=== PATIENT | male | born 1985 ===

== ENCOUNTER 2018-07-13 14:17 | Emergency (ER) | payer SELFPAY ==
[2018-07-13 14:29] VITALS: BMI 29.8
[2018-07-13 14:43] VITALS: O2SAT 99
[2018-07-13 15:03] LABS: BASO % 0.4 % (0.0-2.0); EOS # 0.1 K/uL (0.0-0.7); EOS % 1.7 % (0.0-4.0); HEMOGLOBIN 14.3 g/dL (12.0-18.0); LYMPH # 1.6 K/uL (1.0-4.3); LYMPH % 31.4 % (20.0-40.0); MEAN CELL VOLUME 91.2 fL (80.0-94.0); MEAN CORPUSCULAR HEMOGLOBIN 30.9 pg (27.0-31.0); MEAN CORPUSCULAR HGB CONC 33.8 g/dL (33.0-37.0); MEAN PLATELET VOLUME 8.5 fL (7.2-11.7); MONO # 0.4 K/uL (0.0-0.8); MONO % 7.2 % (0.0-10.0); NEUT % 59.3 % (50.0-75.0); RBC 4.62 Mil/uL (4.40-5.90); RED CELL DISTRIBUTION WIDTH 12.8 % (11.5-14.5)
[2018-07-13 15:45] LABS: ALB/GLOB RATIO 1.8 (1.0-2.1); ALBUMIN 4.8 g/dL (3.5-5.0); ALT/SGPT 26 U/L (21-72); AST/SGOT 41 U/L (17-59); BLOOD UREA NITROGEN 11 mg/dL (9-20); CALCIUM 8.9 mg/dl (8.6-10.4); GFR NON-AFRICAN AMERICAN > 60
[2018-07-13 15:47] LABS: ACETAMINOPHEN < 10.0 ug/mL (10.0-30.0); SALICYLATE < 1.0 mg/dL 1
--- NOTE | 2018-07-13 15:50 | C.PDOC ---
History Of Present Illness 33 years old male is brought in by EMS for complaints of taking a dietary supplement then he became non-verbal. As per EMS, patient was asking random questions without any association to the conversations taking place. Upon arrival, patient is non-responding verbally but he is awake and alert with no physical deficits. No PMhx of seizure like activity prior. Time Seen by Provider: 07/13/18 14:35 Chief Complaint (Nursing): Altered Mental Status History Per: Patient, EMS History/Exam Limitations: None, Clinical Condition Onset/Duration Of Symptoms: Hrs Current Symptoms Are (Timing): Still Present Usual Baseline: Alert Oriented, Alert Confused, Non-verbal Exacerbating Factor(s): Unknown Use Of Anticoag/Antiplatelets: No Recent travel outside of the [place]: No Past Medical History Vital Signs: Last Vital Signs Temp 98.5 F 07/13/18 14:35 Pulse 79 07/13/18 14:35 Resp 16 07/13/18 14:35 BP 140/96 H 07/13/18 14:35 Pulse Ox 99 07/13/18 14:35 Family History: States: Unknown Family Hx - Social History Hx Alcohol Use: No (unable to obtain) Hx Substance Use: No (unable to obtain) Review Of Systems Review Of Systems: ROS cannot be obtained secondary to pt's inabilty to answer questions. (Patient is non-verbal) Physical Exam - Physical Exam Appears: Non-toxic, No Acute Distress Skin: Normal Color, Warm, Dry, No Rash Head: Atraumatic, Normacephalic Eye(s): bilateral: Normal Inspection, PERRL, EOMI Oral Mucosa: Moist Neck: Normal ROM, Supple Chest: Symmetrical, No Tenderness Cardiovascular: Rhythm Regular, No Murmur Respiratory: Normal Breath Sounds, No Rales, No Rhonchi, No Wheezing Gastrointestinal/Abdominal: Bowel Sounds (Active ), Soft, No Tenderness Extremity: Normal ROM Extremity: Bilateral: Atraumatic, Normal Color And Temperature, Normal ROM Pulses: Left Radial: Normal, Right Radial: Normal Neurological/Psych: Other (Awake and alert. No focal deficits ) ED Course And Treatment - Laboratory Results Result Diagrams: 07/13/18 14:58 07/13/18 14:58 O2 Sat by Pulse Oximetry: 99 (RA ) Pulse Ox Interpretation: Normal Medical Decision Making Medical Decision Making: Plan: * Blood work * EKG * Urinalysis * CT Head EKG: * Normal sinus rhythm at 79 bpm * No intervals, axis, or ST/T wave changes. 15:30: Patient at baseline and Conversant. Has no complaints at this time. No deficits. Patient also states he feels normal, denies any drug ingestion. Patient is ambulatory without any limitations. No focal deficits. Progress: Will cancel CT head and CXR. Labs all normal. Diagnosis: Confusion resolved Disposition Counseled Patient/Family Regarding: Studies Performed, Diagnosis, Need For Followup - Disposition Referrals: [facility] [Outside] Disposition: HOME/ ROUTINE Disposition Time: 15:49 Condition: STABLE Additional Instructions: follow up with your doctor within 2 days call ot make an appointment take medications as prescribed return to ER if symptoms worsens or progress Instructions: Conversion Disorder, Delirium (Confusion) (DC) Forms: [facility] ([place]er), General Discharge Instructions - Clinical Impression Clinical Impression: Conversion disorder, Confusion - Scribe Statement The provider has reviewed the documentation as recorded by the Shanika Glass All medical record entries made by the Danielleibsánchez were at my direction and personally dictated by me. I have reviewed the chart and agree that the record accurately reflects my personal performance of the history, physical exam, medical decision making, and the department course for this patient. I have also personally directed, reviewed, and agree with the discharge instructions and disposition.
--- NOTE | 2018-07-13 15:51 | C.PDOC ---
Time Seen by Provider: 07/13/18 14:35 Chief Complaint (Nursing): Altered Mental Status Past Medical History Vital Signs: Last Vital Signs Temp 98.5 F 07/13/18 14:35 Pulse 79 07/13/18 14:35 Resp 16 07/13/18 14:35 BP 140/96 H 07/13/18 14:35 Pulse Ox 99 07/13/18 14:35 - Social History Hx Alcohol Use: No (unable to obtain) Hx Substance Use: No (unable to obtain) ED Course And Treatment - Laboratory Results Result Diagrams: 07/13/18 14:58 07/13/18 14:58 O2 Sat by Pulse Oximetry: 99 Disposition - Disposition Forms: [employer] ([place])
[2018-07-13 16:15] VITALS: BP 131/89; PULSE 86; RESP 18; TEMP 98.4
--- NOTE | 2018-07-14 18:41 | CARD ---
APPROVED REPORT Date of service: 07/13/2018 EKG Measurement Heart [id number] <Conclusion> Normal sinus rhythm Nonspecific ST abnormality Abnormal ECG
== END 2018-07-13 16:17 | disposition home or self-care (01) ==
LOC: C.ER 14:17 → EDBD 14:17 → C.ER 16:17
DX: F44.9 Dissociative and conversion disorder, unspecified (principal); R41.0 Disorientation, unspecified
CPT/HCPCS: 80053; 82140; 82948; 84443; 84484; 85025; 93005; 99285; G0480